=== PATIENT | female | born 1980 | race Caucasian/White ===

== ENCOUNTER 2020-11-13 08:26 | Emergency (ER) | payer SELFPAY ==
--- NOTE | 2020-11-13 08:44 | ED.DENTAL ---
HPI - Dental/Oral General Chief complaint: Dental/Oral Stated complaint: left side facial swelling Time Seen by Provider: 11/13/20 08:50 History of Present Illness HPI Narrative: 40-year-old female presents to the [facility] with dental pain and swelling. States she is recently had a root canal and states that the [place] dentist did it in the wrong tooth. Swelling noted to the left side of her face. Swelling noted to the gingiva. Denies fevers. No nausea or vomiting. Only able to eat soft foods. Related Data Allergies Allergy/AdvReac Type Severity Reaction Status Date / Time aspirin Allergy Mild Rash, Verified 11/13/20 08:41 vomiting, itching Egg Derived Allergy Unknown Rash Verified 11/13/20 08:41 Penicillins Allergy Unknown Unknown Verified 11/13/20 08:41 Review of Systems Review of Systems: Narrative: CONSTITUTIONAL: Denies fever, chills, or sweats. EYES: Denies visual changes, redness, or discharge. ENT: Denies rhinorrhea, congestion, sore throat, or otalgia. Dental pain left lower associated with swelling CARDIOVASCULAR: Denies chest pain, palpitations, or edema. RESPIRATORY: Denies cough or dyspnea. GASTROINTESTINAL: Denies abdominal pain, nausea, vomiting, or diarrhea. GENITOURINARY: Denies dysuria or hematuria. SKIN: Denies rash or itching. MUSCULOSKELETAL: Denies back pain, joint pain, or myalgia. NEUROLOGIC: Denies headache, numbness, or weakness. PSYCHIATRIC: Denies anxiety or depression. All other systems reviewed are negative, except as documented in HPI. PMFSH Surgical History Surgical History H/O tubal ligation Social History Social History Gender identity (if verbalized by the patient): Female Comments At the time of my signature, I reviewed and agree with the nursing past medical, surgical, social, and family history. There is no relevant family history pertinent to the patient complaint. Exam Narrative: Exam Narrative: GENERAL: This is a well-nourished, well-developed patient, in no apparent distress. HEAD: normocephalic, atraumatic. EYES: PERRL. Sclera clear/white. Vision is grossly intact. EARS: External ears normal, auditory canals clear and without drainage, TMs normal without perforation. Hearing grossly intact. NOSE: External nose normal with no obvious nasal discharge, nares without redness, no rhinorrhea. THROAT: Mucous membranes moist, posterior pharynx clear. Left lower gum swollen. Poor dentition. Cavities noted. Swelling of the face noted along the left lower gumline. NECK: Neck supple. Tender with left-sided lymphadenopathy. No masses or thyromegaly. CARDIOVASCULAR: Regular rate and rhythm without murmurs, gallops, or rubs. RESPIRATORY: Clear to auscultation. Breath sounds equal bilaterally. No wheezes, rales, or rhonchi. GASTROINTESTINAL: Abdomen soft, non-tender, nondistended. Bowel sounds are active. No hepato-splenomegaly, or palpable masses. No guarding. SKIN: warm, intact with no suspicious lesions or rash, good texture and turgor. NEURO: awake, alert, and oriented to person, place and time. There were no obvious focal neurologic abnormalities. EXTREMITIES: No clubbing, cyanosis, or edema. No joint tenderness, effusion, or edema noted. BACK: Nontender without deformity or crepitance. No flank tenderness. HENMT: Teeth image: 1. Tooth 19 has a filling, surrounding tooth 19,20 swelling, redness and tenderness to the gums. Course Vital Signs Vital signs: Vital Signs Temperature 98.0 F 11/13/20 08:47 Pulse Rate 80 11/13/20 08:47 Respiratory Rate 16 11/13/20 08:47 Blood Pressure 141/85 H 11/13/20 08:47 Pulse Oximetry 99 11/13/20 08:47 Temperature 98.0 F 11/13/20 08:47 Pulse Rate 80 11/13/20 08:47 Respiratory Rate 16 11/13/20 08:47 Blood Pressure 141/85 H 11/13/20 08:47 Pulse Oximetry 99 11/13/20 08:47 Reviewed. Blood
[2020-11-13 08:47] VITALS: BP 141/85; PULSE 80; RESP 16; TEMP 36.7; O2SAT 99
== END 2020-11-13 09:03 | disposition home or self-care (01) ==
PROVIDERS: Emergency Provider Nurse Practitioner
DX: K04.7 Periapical abscess without sinus (principal)
CPT/HCPCS: 99213; G0463

== ENCOUNTER 2021-03-29 09:01 | Emergency (ER) | payer OTHER, SELFPAY ==
--- NOTE | 2021-03-29 09:13 | ED.DENTAL ---
HPI - Dental/Oral General Chief complaint: Dental/Oral Stated complaint: abscess tooth Time Seen by Provider: 03/29/21 09:14 Source: patient and RN notes reviewed Mode of arrival: ambulatory Limitations: no limitations History of Present Illness HPI Narrative: 40-year-old female presents to the [facility] with complaints of dental pain. Had been seen November 13 of this year for the same. Patient states the pain started 2 days ago with the swelling shortly thereafter. Has tried Advil with no relief. Poor dentition with left-sided lower facial swelling noted. Denies fevers. Is able to maintain own secretions. Related Data Allergies Allergy/AdvReac Type Severity Reaction Status Date / Time aspirin Allergy Mild Rash, Verified 03/29/21 09:23 vomiting, itching Egg Derived Allergy Unknown Rash Verified 03/29/21 09:23 Penicillins Allergy Unknown Unknown Verified 03/29/21 09:23 Review of Systems Review of Systems: All systems reviewed & are unremarkable except as noted in HPI and below Constitutional: Constitutional: Reports no additional constitutional complaints, Denies chills and Denies fever(s) Eyes: Eyes: Reports no additional eye complaints and Denies change in vision ENT: Reports as per HPI Comments: Left lower dental pain Cardiovascular: Cardiovascular: Reports no additional cardiovascular complaints and Denies chest pain Respiratory: Respiratory: Reports no additional respiratory complaints, Denies cough and Denies dyspnea Gastrointestinal: Gastrointestinal: Reports no additional gastrointestinal complaints, Denies abdominal pain, Denies nausea and Denies vomiting Musculoskeletal: Musculoskeletal: Reports no additional musculoskeletal complaints and Denies back pain Integumentary/Breasts: Skin/Breast: Reports system reviewed and no additional complaints, except as docu Neurologic: Reports system reviewed and no additional complaints, except as documented Psychiatric: Psychiatric: Reports no additional psychiatric complaints Allergic/Immunologic: Allergic/Immunologic: Reports no additional allergic/immunologic complaints PMFSH Surgical History Surgical History H/O tubal ligation Social History Social History Gender identity (if verbalized by the patient): Female Comments At the time of my signature, I reviewed and agree with the nursing past medical, surgical, social, and family history. There is no relevant family history pertinent to the patient complaint. Exam Const: General: alert and ill appearing (Is having discomfort) acutely Nutritional Appearance: well nourished Orientation/consciousness: patient oriented x3 Limitations: no limitations HENMT: Head: normal to inspection Ears: hearing grossly normal bilaterally, external ears normal and TM's normal bilaterally General nose exam: Normal external nose present Teeth and gingiva: abnormal tooth and associated gingiva and gingiva abnormal edematous (Lateral aspect of 19 through 21) and tender Teeth image: 1. Poor dentition and significant swelling noted to the lateral aspects of teeth 18 19 20 21 Eyes: Conjunctivae: conjunctivae normal Pupils: Equal, round and reactive pupils present Neck: Neck: no lymphadenopathy and no meningeal signs Other: Swelling noted to the lower jaw left side Chest: Chest palpation & inspection: normal inspection of the chest Resp: Effort & Inspection: normal respiratory effort and no use of accessory muscles Auscultation: clear to auscultation bilaterally, no crackles, no rales, no rhonchi and no wheezes Cardio: Rate: regular rate Rhythm: regular rhythm : General: Yes no CVA tenderness Back/Spine/Pelvis: Back: no CVA tenderness Skin: General skin exam: normal color Rashes: no rashes Neuro: General: patient oriented x3, moves all extremities, no meningeal signs and no focal motor deficits Speech
[2021-03-29 09:14] VITALS: BP 146/77; PULSE 68; RESP 16; TEMP 36.3; O2SAT 99
== END 2021-03-29 09:33 | disposition home or self-care (01) ==
PROVIDERS: Emergency Provider Nurse Practitioner
DX: K04.7 Periapical abscess without sinus (principal)
CPT/HCPCS: 99213; G0463

== ENCOUNTER 2021-09-13 10:42 | Emergency (ER) | payer OTHER, SELFPAY ==
--- NOTE | 2021-09-13 10:56 | ED.URI ---
HPI - URI/Sore Throat General Chief Complaint: Upper Respiratory Infection Stated Complaint: ear pain/cough Time Seen by Provider: 09/13/21 10:57 Source: patient and RN notes reviewed Mode of arrival: ambulatory Limitations: no limitations History of Present Illness HPI Narrative: 40-year-old female presents concern for 5-day history of sinus congestion, drainage, sore throat, headache, cough, ear pressure, trouble sleeping. She has been taking several [id number] medications without relief. 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 Reports she has not been vaccinated for Covid, had Covid in 2019. MD elicited complaint: cough Related Data Allergies Allergy/AdvReac Type Severity Reaction Status Date / Time aspirin Allergy Mild Rash, Verified 09/13/21 11:24 vomiting, itching Egg Derived Allergy Unknown Rash Verified 09/13/21 11:24 Penicillins Allergy Unknown Unknown Verified 09/13/21 11:24 codeine Allergy Hives Verified 09/13/21 11:25 Review of Systems Review of Systems: CONSTITUTIONAL: Reports malaise, chills. Denies sweats, or fever. EYES: Denies visual changes, redness, or discharge. ENT: Reports rhinorrhea, congestion, sinus pain, otalgia and sore throat. CARDIOVASCULAR: Denies chest pain, palpitations, or edema. RESPIRATORY: Reports cough. Denies dyspnea. GASTROINTESTINAL: Denies abdominal pain, nausea, vomiting, diarrhea SKIN: Denies rash or itching. MUSCULOSKELETAL: Denies myalgia. NEUROLOGIC: Reports headache. All systems reviewed & are unremarkable except as noted in HPI and below PMFSH Surgical History Surgical History H/O tubal ligation Social History Social History Gender identity (if verbalized by the patient): Female Comments At time of signature, agree with nursing past medical, surgical, social and family history. There is no relevant family history pertinent to the presenting complaint Exam Narrative: GENERAL: Well-appearing, well-nourished, and in no acute distress. HEAD: Normocephalic EYES: PERRLA, conjunctivae clear ENT: Nares clear, clear discharge. Mucous membranes moist. TM pearly kaur with sharp light reflex bilaterally, slightly bulging likely fluid; no tragal tenderness. Oropharynx mildly erythematous without lesions. Tonsils not enlarged and without exudate, no drooling, no hoarseness, no trismus, uvula midline. Postnasal drainage noted NECK: Supple. No lymphadenopathy CHEST: Clear to auscultation, breath sounds equal. No wheezing, rhonchi, rales, or stridor. No respiratory distress, speaks in full sentences. Cough noted HEART: Regular rate and rhythm. No murmur heard. SKIN: Warm, dry, no rash. NEURO: Alert and oriented x3. PSYCH: Normal mood and affect Course Course Emergency Course: Patient is aware of diagnosis, understands and agrees to treatment plan. Anticipatory guidance given. Patient agrees to follow-up as directed and is aware of reasons to seek care at the emergency department. Portions of this record may have been created with voice recognition software Vital Signs Vital signs: Vital Signs Temperature 97.9 F 09/13/21 10:57 Pulse Rate 93 09/13/21 10:57 Respiratory Rate 16 09/13/21 10:57 Blood Pressure 115/80 09/13/21 10:57 Pulse Oximetry 99 09/13/21 10:57 Temperature 97.9 F 09/13/21 10:57 Pulse Rate 93 09/13/21 10:57 Respiratory Rate 16 09/13/21 10:57 Blood Pressure 115/80 09/13/21 10:57 Pulse Oximetry 99 09/13/21 10:57 Reviewed. MDM - URI/Sore Throat MDM Narrative Medical decision making narrative: Differential diagnosis considered: Brambila virus, strep pharyngitis, allergic rhinitis, upper respiratory tract infection, sinusitis, rhinosinusitis, nasopharyngitis. viral pharyngitis, otitis media, otitis externa, pneumonia, bronchitis, viral cough syndrome, viral syndrome, and influenza. Exam findings show no acute concerns or changes;
[2021-09-13 10:57] VITALS: BP 115/80; PULSE 93; RESP 16; TEMP 36.6; O2SAT 99
== END 2021-09-13 12:15 | disposition home or self-care (01) ==
PROVIDERS: Emergency Provider Nurse Practitioner
DX: J06.9 Acute upper respiratory infection, unspecified (principal); Z20.822 Contact with and (suspected) exposure to COVID-19
CPT/HCPCS: 87081; 87426; 87804; 87880; 99213; C9803; G0463

== ENCOUNTER 2022-09-20 13:09 | Emergency (ER) | payer OTHER, SELFPAY ==
--- NOTE | ~2022-09-20 | XR_ITS ---
EXAMINATION: XR chest 2V 09/20/2022 13:36 INDICATION: Productive cough. PROCEDURE: 2 view chest COMPARISON: No prior studies for comparison. FINDINGS: The lungs are clear. The cardiomediastinal silhouette is within normal limits. There are no pleural effusions. There is no pneumothorax suspected. IMPRESSION: 1: NO ACUTE CARDIOPULMONARY DISEASE. Reviewed, dictated and finalized at location A. [employer]
--- NOTE | 2022-09-20 13:13 | ED.URI ---
HPI - URI/Sore Throat General Chief Complaint: Upper Respiratory Infection Stated Complaint: Cough, Headache, Vomiting, Sore Throat Time Seen by Provider: 09/20/22 13:13 Source: patient Mode of arrival: ambulatory Limitations: no limitations History of Present Illness HPI Narrative: Lynda is a 41-year-old female patient presenting to clinic today with complaints of cough, headache, vomiting, nausea, and sore throat. She reports she is having a hard time keeping anything down. She denies any chest pain but states that it is hard to take a deep breath. States she has taken 2 at home COVID test and they were both negative MD elicited complaint: sore throat and nasal congestion Related Data Allergies Allergy/AdvReac Type Severity Reaction Status Date / Time aspirin Allergy Mild Rash, Verified 09/13/21 11:24 vomiting, itching Egg Derived Allergy Unknown Rash Verified 09/13/21 11:24 Penicillins Allergy Unknown Unknown Verified 09/13/21 11:24 acetaminophen [From Vicodin] Allergy Unknown Verified 09/20/22 13:29 codeine Allergy Hives Verified 09/13/21 11:25 hydrocodone [From Vicodin] Allergy Unknown Verified 09/20/22 13:29 Review of Systems Review of Systems: Pertinent positives per HPI. Patient denies any rash, visual changes, dizziness, shortness of breath, chest pain, palpitations, diarrhea, constipation, abdominal pain, or any urinary issues. [facility] Surgical History Surgical History H/O tubal ligation Social History Social History Gender identity (if verbalized by the patient): Female Comments At the time of my signature, I reviewed and agree with the nursing past medical, surgical, social, and family history. There is no relevant family history pertinent to the patient complaint. Exam Narrative: General: Well-developed, well nourished, in no apparent distress Head: Normocephalic, atraumatic Eyes: Pupils equally round and reactive to light bilaterally, EOM intact, sclera and conjunctive clear, no discharge, lids normal Ears: TMs intact and dull, ear canals clear, no drainage, grossly hearing normal. Nose: Nares patent, clear nasal discharge, no inflammation, no sinus tenderness. Mouth: Oral pharynx without lesions or masses, good dentition, MMM. oropharynx red with mild tonsillar enlargement Neck: Supple, trachea midline, mild enlargement of anterior or posterior cervical nodes, no thyroid masses or goiter palpable. Cardio: Regular rate and rhythm, s1 and s2 normal, no murmur appreciated. Resp: crackles heard over the left posterior base, no rhonchi, wheezing or rubs Course Course Emergency Course: Portions of this record may have been created with voice recognition software. Level of Care: Express Care Visit Vital Signs Vital signs: Vital Signs Temperature 36.8 C 09/20/22 13:18 Pulse Rate 87 09/20/22 13:18 Respiratory Rate 16 09/20/22 13:18 Blood Pressure 116/86 09/20/22 13:18 Pulse Oximetry 99 09/20/22 13:18 Oxygen Delivery Room Air 09/20/22 13:18 Temperature 36.8 C 09/20/22 13:18 Pulse Rate 87 09/20/22 13:18 Respiratory Rate 16 09/20/22 13:18 Blood Pressure 116/86 09/20/22 13:18 Pulse Oximetry 99 09/20/22 13:18 Oxygen Delivery Room Air 09/20/22 13:18 Vital signs reviewed MDM - URI/Sore Throat MDM Narrative Medical decision making narrative: At the time of visit patient is resting comfortably on the exam table. chest x-ray was performed was negative in the clinic for any pneumonia. Influenza testing was completed was negative. She has taken 2 at home COVID test and they were negative. I suspect patient has URI/viral syndrome/pharyngitis. Strep culture was obtained and sent to the lab. Supportive measures were discussed with the patient she voiced understanding of discharge instructions and agrees to treatment plan. Erlinda
[2022-09-20 13:18] VITALS: BP 116/86; PULSE 87; RESP 16; TEMP 36.8; O2SAT 99
== END 2022-09-20 14:04 | disposition home or self-care (01) ==
PROVIDERS: Emergency Provider Nurse Practitioner Family
DX: B34.9 Viral infection, unspecified (principal); J06.9 Acute upper respiratory infection, unspecified; J02.9 Acute pharyngitis, unspecified; Z87.891 Personal history of nicotine dependence
CPT/HCPCS: 71046; 87081; 87804; 99213; G0463

== ENCOUNTER 2023-01-30 10:05 | Emergency (ER) | payer OTHER, SELFPAY ==
[2023-01-30 10:20] VITALS: BP 127/94; PULSE 72; RESP 14; TEMP 36.7; O2SAT 100
--- NOTE | 2023-01-30 11:25 | ED.URI ---
HPI - URI/Sore Throat General Chief Complaint: Upper Respiratory Infection Stated Complaint: sore throat / ears / nausea / eyes Time Seen by Provider: 01/30/23 11:26 Source: patient, RN notes reviewed and old records reviewed Mode of arrival: ambulatory Limitations: no limitations History of Present Illness HPI Narrative: 42-year-old female who presents to [facility] with complaints 3 day history of her throat being on fire, having cough, runny nose and her left eye has felt itchy. Patient states she did have headache did take some ibuprofen for that but has not taken any medications such as antihistamine or cough/cold medication. Patient reports no fevers chills or sweats or body aches. 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 MD elicited complaint: cough, sore throat, rhinorrhea, nasal congestion and other (left eye feels itchy) Onset (ago): day(s) (3) Able to tolerate fluids by mouth: Yes Treatments prior to arrival: ibuprofen Related Data Allergies Allergy/AdvReac Type Severity Reaction Status Date / Time aspirin Allergy Mild Rash, Verified 09/13/21 11:24 vomiting, itching Egg Derived Allergy Unknown Rash Verified 09/13/21 11:24 Penicillins Allergy Unknown Unknown Verified 09/13/21 11:24 acetaminophen [From Vicodin] Allergy Unknown Verified 09/20/22 13:29 codeine Allergy Hives Verified 09/13/21 11:25 hydrocodone [From Vicodin] Allergy Unknown Verified 09/20/22 13:29 Review of Systems Review of Systems: CONSTITUTIONAL: Denies malaise, chills, sweats, or fever. EYES: Denies visual changes, redness, or discharge.states left eye itching ENT: Reports rhinorrhea, congestion,no sinus pain, no otalgia positive for sore throat. CARDIOVASCULAR: Denies chest pain, palpitations, or edema. RESPIRATORY: Reports cough.? Denies dyspnea. GASTROINTESTINAL: Denies abdominal pain, nausea, vomiting, diarrhea SKIN: Denies rash or itching. MUSCULOSKELETAL: Denies myalgia. NEUROLOGIC: Reports some headache. All systems reviewed & are unremarkable except as noted in HPI and below PMFSH Surgical History Surgical History H/O tubal ligation Social History Social History Gender identity (if verbalized by the patient): Female Comments At time of signature, agree with nursing past medical, surgical, social and family history. There is no relevant family history pertinent to the presenting complaint Exam Narrative: GENERAL: Well-appearing, well-nourished, and in no acute distress. HEAD: Normocephalic EYES: PERRLA, conjunctivae clear, no redness or drainage from eyes noted ENT: Nares clear, turbinates edematous and erythematous, clear discharge. Mucous membranes moist. TM pearly kaur with dull light reflex bilaterally; no tragal tenderness. Oropharynx erythematous without lesions. Tonsils not enlarged and without exudate, no drooling, no hoarseness, no trismus, uvula midline. NECK: Supple. No lymphadenopathy CHEST: Clear to auscultation, breath sounds equal. No wheezing, rhonchi, rales, or stridor. No respiratory distress, speaks in full sentences.SAO2 100% on room air HEART: Regular rate and rhythm. No murmur heard. SKIN: Warm, dry, no rash. NEURO: Alert and oriented x3. PSYCH: Normal mood and affect Course Course Emergency Course: Patient is aware of diagnosis, understands and agrees to treatment plan.? Anticipatory guidance given.? Patient agrees to follow-up as directed and is aware of reasons to seek care at the emergency department. Portions of this record may have been created with voice recognition software Level of Care: Express Care Visit Vital Signs Vital signs: Vital Signs Temperature 36.7 C 01/30/23 10:20 Pulse Rate 72 01/30/23 10:20 Respiratory Rate 14 01/30/23 10:20 Blood Pressure 127/94 H 04
== END 2023-01-30 11:54 | disposition home or self-care (01) ==
PROVIDERS: Emergency Provider Registered Nurse
DX: J06.9 Acute upper respiratory infection, unspecified (principal); J02.9 Acute pharyngitis, unspecified; R05.9 Cough, unspecified
CPT/HCPCS: 87081; 87880; 99213; G0463

== ENCOUNTER 2023-11-30 08:00 | Emergency (ER) | payer SELFPAY ==
--- NOTE | ~2023-11-30 | XR_ITS ---
XR toe 5th LT min 2V DATE: 11/30/2023 08:21 INDICATION: Stubbed toe. Proximal phalanx pain. TECHNIQUE: 4 views COMPARISON: None FINDINGS: There is a recent linear oblique extra-articular fracture of the shaft of the proximal phal anx with approximately 1.2 mm maximal medial displacement and approximately 13 degrees apex medial an gulation. No other fracture or dislocation. IMPRESSION: Fracture of proximal phalanx of fifth digit Reviewed, dictated and finalized at location B. [employer]
[2023-11-30 08:08] VITALS: BP 129/81; PULSE 75; RESP 16; TEMP 36.9; O2SAT 100
--- NOTE | 2023-11-30 08:11 | ED.LOWEXIN ---
HPI - Extremity Injury (Lower) General Chief Complaint: Extremity Injury, Lower Stated Complaint: left pinkie toe injury Time Seen by Provider: 11/30/23 08:37 Source: patient, family, RN notes reviewed and old records reviewed Mode of arrival: ambulatory Limitations: no limitations History of Present Illness HPI Narrative: 43 year old female accompanied by significant other presents to [facility] care with complaints of injury to her left 5th toe last night when she hit her toe on vaccum brick cleaner. Patient reports that toe was angled she azalea taped toe and alignment improved but continues to have pain to toe and difficult applying weight bearing to her foot. Left 5th toe and lateral foot bruising present with pain MD complaint: other (5th toe injury left) Onset (ago): day(s) (1) Injury: Left: toes (left 5th toe) Type of Injury: blunt Place: home Severity scale (1-10): 5 Exacerbating factors: weight bearing Treatments prior to arrival: NSAIDS and other (azalea taped) Related Data Home Medications Medication Instructions Recorded Confirmed No Home Medications 11/30/23 11/30/23 Allergies Allergy/AdvReac Type Severity Reaction Status Date / Time aspirin Allergy Mild Rash, Verified 09/13/21 11:24 vomiting, itching Egg Derived Allergy Unknown Rash Verified 09/13/21 11:24 Penicillins Allergy Unknown Unknown Verified 09/13/21 11:24 acetaminophen [From Vicodin] Allergy Unknown Verified 09/20/22 13:29 codeine Allergy Hives Verified 09/13/21 11:25 hydrocodone [From Vicodin] Allergy Unknown Verified 09/20/22 13:29 Review of Systems Review of Systems: CONSTITUTIONAL: Denies fever, chills, or sweats. EYES: Denies visual changes, redness, or discharge. ENT: Denies rhinorrhea, congestion, sore throat, or otalgia. CARDIOVASCULAR: Denies chest pain, palpitations, or edema. RESPIRATORY: Denies cough or dyspnea. GASTROINTESTINAL: Denies abdominal pain, nausea, vomiting, or diarrhea. GENITOURINARY: Denies dysuria or hematuria. SKIN: Denies rash or itching. MUSCULOSKELETAL: Denies back pain,positive for left 5th toe pain or myalgia NEUROLOGIC: Denies headache, numbness, or weakness. PSYCHIATRIC: Denies anxiety or depression. All systems reviewed & are unremarkable except as noted in HPI and below PMFSH Past Medical History Medical History (Updated 12/01/23 @ 10:51 by Lin Hartmann NP) GERD (gastroesophageal reflux disease) Urinary tract infection Surgical History Surgical History H/O tubal ligation Social History Social History (Updated 11/30/23 @ 08:36 by Lin Hartmann NP) Smoking status: Former smoker Gender identity (if verbalized by the patient): Female Comments At time of signature, agree with nursing past medical, surgical, social and family history. There is no relevant family history pertinent to the presenting complaint Exam Narrative: GENERAL: Well-appearing, well-nourished, and in no acute distress. HEAD: Normocephalic, atraumatic. EYES: PERRLA and EOMI. ENT: Nares clear, no rhinorrhea or epistaxis. Mucous membranes moist. NECK: Supple. CHEST: Clear to auscultation. No respiratory distress.SAO2 100% on room air HEART: Regular rate and rhythm. No murmur heard. Normal peripheral pulses. ABDOMEN: Soft, nontender, nondistended, normal active bowel sounds. EXTREMITIES: Normal range of motion. No edema.Exception noted to left 5th toe which is painful with bruising and swelling and increased pain with weight bearing and palpation after injury last evening. Patient has strong left pedal pulse denies any tingling or numbness to left foot or 5th toe.mobility decreased. SKIN: Warm, dry, no rash. NEURO: No focal deficits. Alert and oriented x3. Course Course Emergency Course: Patient is aware of diagnosis, understands and agrees to treatment plan.? Anticipatory guidance given.? Patient agrees to follow-up as directed and is aware of r
== END 2023-11-30 09:03 | disposition home or self-care (01) ==
PROVIDERS: Emergency Provider Registered Nurse
DX: S92.512A Displaced fracture of proximal phalanx of left lesser toe(s), initial encounter for closed fracture (principal); W22.8XXA Striking against or struck by other objects, initial encounter; K21.9 Gastro-esophageal reflux disease without esophagitis
CPT/HCPCS: 73660; 99214; G0463

== ENCOUNTER 2023-12-06 08:02 | Emergency (ER) | payer SELFPAY | END 2023-12-06 08:48 | disposition home or self-care (01) | LOC: EXPBETH 12:16 | PROVIDERS: Emergency Provider Nurse Practitioner | DX: J04.0 Acute laryngitis (principal); H65.93 Unspecified nonsuppurative otitis media, bilateral; J02.9 Acute pharyngitis, unspecified | CPT/HCPCS: 87081; 99213; G0463 ==